=== PATIENT | female | born 1990 | race Caucasian/White ===

== ENCOUNTER 2018-01-13 14:37 | Inpatient (IN) | payer OTHER ==
[~2018-01-13] VITALS: Ht 180.3 cm; Wt 3.2 kg
[~2018-01-13 14:37] MED LIST: PRENATABS RX T1 EACH PO
[2018-01-15] MEDS ORDERED: PRENATAL TABLE1 EAC2 PO (02:03)
== END 2018-01-17 19:32 | disposition home or self-care (01) | DRG 766 ==
LOC: OB/GYN 01-15 01:07 → LDR 01-15 01:07 → OB/GYN 01-15 05:17 → SURH 01-16 13:53 → OB/GYN 01-17 15:40
PROVIDERS: Obstetrics & Gynecology
PROC: 0UL70ZZ Occlusion of Bilateral Fallopian Tubes, Open Approach (ICD-10-PCS; 2018-01-15)
PROC: 4A1HXCZ Monitoring of Products of Conception, Cardiac Rate, External Approach (ICD-10-PCS; 2018-01-15)
PROC: 10D00Z1 Extraction of Products of Conception, Low, Open Approach (ICD-10-PCS; principal; 2018-01-15 07:00)
DX: O99.824 Streptococcus B carrier state complicating childbirth (principal); O86.13 Vaginitis following delivery; Z3A.39 39 weeks gestation of pregnancy; Z37.0 Single live birth; Z30.2 Encounter for sterilization